=== PATIENT | male | born 1960 | race Caucasian/White ===

== ENCOUNTER 2017-02-10 09:09 | Emergency (ER) ==
[2017-02-10 09:15] VITALS: BP 149/95; TEMP 98.5; BMI 29.2
[2017-02-10] MEDS ORDERED: TORADOL IM STA (09:35)
[2017-02-10] MEDS ORDERED: ZOFRAN 4 MG/2 ML IM STA (09:37)
[2017-02-10] MEDS ORDERED: MORPHINE 4 MG/ML SYRINGE IM STA (09:37)
[2017-02-10 09:44] LABS: BASOPHILS # (AUTO) 0.1 K/uL (0-0.2); BASOPHILS % (AUTO) 0.4 % (0.0-3.0); EOSINOPHILS % (AUTO) 0.3 % (0.0-7.0); HEMATOCRIT 48.3 % (42.0-52.0); HEMOGLOBIN 17.4 g/dl (14.0-18.0); IMMATURE GRANULOCYTE % (AUTO) 0.5 % (0.0-5.0); LYMPHOCYTES # (AUTO) 1.4 K/uL (0.60-3.4); LYMPHOCYTES % (AUTO) 12.5 (10.0-50.0); MEAN CORPUSCULAR HEMOGLOBIN 32.1 pg (27.0-31.0); MEAN CORPUSCULAR VOLUME 89.1 fl (80.0-94.0); MONOCYTES # (AUTO) 0.7 K/uL (0.4-2.0); MONOCYTES % (AUTO) 5.7 (0-10); NEUTROPHILS # (AUTO) 9.3 K/ul (2.0-6.9); NEUTROPHILS % (AUTO) 80.6; PLATELET COUNT 224 10^3/uL (140-440); RED BLOOD COUNT 5.42 10^6/ul (4.70-6.10)
[2017-02-10 09:51] LABS: BILIRUBIN,URINE Negative (NEGATIVE); KETONES,URINE 2+ (NEGATIVE); LEUKOCYTE ESTERASE ,URINE Negative (NEGATIVE); NITRITE,URINE Negative (NEGATIVE); PH,URINE 5.5 (5-9); PROTEIN,URINE 1+ (NEGATIVE); URINE, BLOOD 2+ (NEGATIVE)
[2017-02-10 09:53] LABS: ADD URINE MICROSCOPIC YES
[2017-02-10 10:05] LABS: ALBUMIN/GLOBULIN RATIO 1.08; ANION GAP 14.6; BILIRUBIN,TOTAL 1.09 mg/dL (0.00-1.20); BUN/CREATININE RATIO 17.79; CALCIUM 9.6 mg/dL (8.2-10.2); CREATININE 1.18 mg/dL (0.60-1.10); POTASSIUM 4.6 mmol/L (3.5-5.1); TOTAL PROTEIN 7.7 g/dL (6.4-8.2)
--- NOTE | 2017-02-10 10:44 | CT ---
EXAM: CT ABDOMEN AND PELVIS HISTORY: Abdominal pain, right-sided TECHNIQUE: CT abdomen and pelvis without intravenous contrast. Images were reconstructed using 3 m m section thickness. Reformations were prepared. COMPARISON: 09/23/2008 FINDINGS: Bilateral nephrolithiasis with multiple tiny stones largest at about 0.3 cm. There is mild right hy dronephrosis secondary to a 0.5 cm calculus within the upper and or minimally distal to the ureterop elvic junction. No other ureteral calculi are identified. There is mild nonspecific bilateral mookie nephric fat stranding. Probable parapelvic cyst lower left kidney at 1.7 cm. Urinary bladder grossl y unremarkable. Liver has diffuse low attenuation. Spleen unremarkable. Gallbladder, pancreas and adrenal glands a ppear normal. Minimal atherosclerotic disease. Stomach unremarkable. Normal appendix and general b owel gas pattern. Mild prostate enlargement. No ascites. Mildly prominent fatty bilateral inguina l canals. The bones reveal osteophytic spurring of the spine and early osteoarthritis of the hips. Lung bases are clear. No pneumoperitoneum. IMPRESSION: 1. Mild right hydronephrosis secondary to a 0.5 cm calculus within the upper ureter. Bilateral nep hrolithiasis. Nonspecific bilateral perinephric fat stranding. 2. Fatty liver. 3. Mild prostate enlargement.
[2017-02-10] MEDS ORDERED: ROCEPHIN IM STA (11:13)
[2017-02-10] MEDS ORDERED: LIDOCAINE 1 % AMP 5 ML (SUTURES) IM STA (11:13)
--- NOTE | 2017-02-10 11:19 | ED.PDOC ---
General ED Provider: Dr. KENNETH FRIEDMAN Chief Complaint: Urinary Problem Stated Complaint: hematuria Time Seen by Physician: 09:15 Mode of Arrival: Walk-In Information Source: Patient Exam Limitations: No limitations Primary Care Provider: JASBIR ZIMMERMAN Nursing and Triage Documentation Reviewed and Agree: Yes Complaint Exam - Complaint/Exam Onset/Duration: 2 days Symptoms Are: Resolved Timing: Intermittent Initial Severity: Mild Current Severity: Mild Location of Pain: Reports: None Aggravating: Reports: None Alleviating: Reports: None Associated Signs and Symptoms: Reports: Hematuria Review of Systems - Review Of Systems Constitutional: Reports: No symptoms Eyes: Reports: No symptoms Ears, Nose, Mouth, Throat: Reports: No symptoms Respiratory: Reports: No symptoms Cardiac: Reports: No symptoms GI: Reports: No symptoms : Reports: Hematuria Musculoskeletal: Reports: No symptoms Skin: Reports: No symptoms Neurological: Reports: No symptoms Endocrine: Reports: No symptoms Hematologic/Lymphatic: Reports: No symptoms All Other Systems: Reviewed and Negative Past Medical History - Past Medical History Previously Healthy: No Endocrine: Reports: None Cardiovascular: Reports: Hypertension Respiratory: Reports: None Hematological: Reports: None Gastrointestinal: Reports: None Genitourinary: Reports: None Neuro/Psych: Reports: None Musculoskeletal: Reports: None Cancer: Reports: None - Surgical History General Surgical History: Reports: Unknown - Family History Family History: Reports: Unknown - Social History Smoking Status: Never smoker Hx Substance Use: No Alcohol Screening: None Physical Exam - Physical Exam Appearance: Well-appearing, No pain distress, Well-nourished Eyes: PRIYANKA, EOMI, Conjunctiva clear ENT: Ears normal, Nose normal, Oropharynx normal Respiratory: Airway patent, Breath sounds clear, Breath sounds equal, Respirations nonlabored Cardiovascular: RRR, Pulses normal, No rub, No murmur GI/: Soft, Nontender, No masses, Bowel sounds normal, No Organomegaly Musculoskeletal: Normal strength, ROM intact, No edema, No calf tenderness Skin: Warm, Dry, Normal color Neurological: Sensation intact, Motor intact, Reflexes intact, Cranial nerves intact, Alert, Oriented Psychiatric: Affect appropriate, Mood appropriate Interpretation - Radiology Interpretation Radiology Results: Positive (renal stone) Physician Notification - Case Discussed Physician Notified: pmd Time of Notification: 11:20 (will see pt in am) Critical Care Note - Critical Care Note Total Time (mins): 0 Course - Course Hematology/Chemistry: 02/10/17 09:40 02/10/17 09:40 Orders, Labs, Meds: Lab Review 02/10/17 02/10/17 09:20 09:40 WBC 11.50 H RBC 5.42 Hgb 17.4 Hct 48.3 MCV 89.1 MCH 32.1 H MCHC 36.0 H RDW Coeff of Brenda 11.9 Plt Count 224 Immature Gran % (Auto) 0.5 Neut % (Auto) 80.6 Lymph % (Auto) 12.5 [place] % (Auto) 5.7 Eos % (Auto) 0.3 Baso % (Auto) 0.4 Immature Gran # (Auto) 0.1 Neut # 9.3 H Lymph # 1.4 [place] # 0.7 Eos # 0.0 Baso # 0.1 Sodium 138 Potassium 4.6 Chloride 101 Carbon Dioxide 27 Anion Gap 14.6 BUN 21 H Creatinine 1.18 H Estimated GFR (MDRD) 64.00 BUN/Creatinine Ratio 17.79 Glucose 214 H Calcium 9.6 Total Bilirubin 1.09 AST 26 ALT 57 Alkaline Phosphatase 87 Total Protein 7.7 Albumin 4.0 Globulin 3.7 Albumin/Globulin Ratio 1.08 Urine Color Yellow Urine Clarity Clear Urine pH 5.5 Ur Specific [place] 1.025 Urine Protein 1+ Urine Glucose (UA) 2+ Urine Ketones 2+ Urine Blood 2+ Urine Nitrite Negative Urine Bilirubin Negative Urine Urobilinogen 1.0 Ur Leukocyte Esterase Negative Urine Microscopic RBC 20-30 Ur Squamous Epith Cells 2-5 Orders Category Date Time Status CBC W/ AUTO DIFF Stat LAB 02/10/17 09:40 Completed COMPREHENSIVE METABOLIC PANEL Stat LAB 02/10/17 09:40 Completed URINALYSIS C & S IF INDICATED Stat LAB 02/10/17 09:20 Completed Ceftriaxone Sodium [Rocephin] MEDS 02/10/17 11:13 Stat 1 gm IM ONCE STA Lidocaine HCl/Pf [Lidocaine 1 % Amp 5 ml (Sutures)] MEDS 02/10/17 11:13 Stat 2.1 ml IM ONCE STA Morphine Sulfate [Morphine 4 mg/ml Syringe] MEDS 02/10/17 09:37 Discontinued 4 mg IM ONCE STA Ondansetron HCl/Pf [Zofran 4 mg/2 ml] MEDS 02/10/17 09:37 Discontinued 4 mg IM ONCE STA CT ABD/PEL WO RENAL STONE PROT Stat RADS 02/10/17 09:34 Completed Medications Discontinued Medications Generic Name Dose Route Start Last Admin Trade Name Nasir PRN Reason Stop Dose Admin Ceftriaxone Sodium 1 gm 02/10/17 11:13 Rocephin IM 02/10/17 11:14 ONCE STA Lidocaine HCl 2.1 ml 02/10/17 11:13 Lidocaine 1 % Amp 5 Ml (Sutures) IM 02/10/17 11:14 ONCE STA Morphine Sulfate 4 mg 02/10/17 09:37 02/10/17 09:53 Morphine 4 Mg/Ml Syringe IM 02/10/17 09:38 4 mg ONCE STA Administration Ondansetron HCl 4 mg 02/10/17 09:37 02/10/17 09:53 Zofran 4 Mg/2 Ml IM 02/10/17 09:38 4 mg ONCE STA Administration Vital Signs: Temp Pulse Resp BP Pulse Ox 02/10/17 09:10 98.5 F 76 20 149/95 H 94 L Departure - Departure Time of Disposition: 11:18 Disposition: HOME SELF-CARE Discharge Problem: Nephrolithiasis, Hematuria Instructions: Hematuria (ED) Condition: Good Pt referred to PMD for follow-up: No Additional Instructions: Please call your Family Physician as soon as possible to schedule a follow-up appointment. Prescriptions: Sulfamethoxazole/Trimethoprim [Bactrim Ds Tablet] 1 each PO BID #10 tablet Allergies/Adverse Reactions: Allergies No Known Allergies Allergy (Verified 02/10/17 09:16) Home Medications: Ambulatory Orders Aspirin [Aspirin EC] 81 mg PO DAILY 06/24/15 Enalapril Maleate [Enalapril Maleate] 20 mg PO BID 06/24/15 Gabapentin [Gabapentin] 300 mg PO TID 06/24/15 Metformin HCl [Glucophage] 500 mg PO BIDWM 06/24/15 Esomeprazole Magnesium [Nexium] 20 mg PO DAILY 02/10/17 Sulfamethoxazole/Trimethoprim [Bactrim Ds Tablet] 1 each PO BID #10 tablet 02/10
== END 2017-02-10 11:29 | disposition home or self-care (01) ==
LOC: ED 09:09
DX: N20.0 Calculus of kidney (principal)
CPT/HCPCS: 36415; 74176; 80053; 81001; 85025; 96372; 99283